=== PATIENT | female | born 1980 | race Caucasian/White ===

== ENCOUNTER → 2016-07-20 | Emergency (ER) | payer OTHER ==
--- NOTE | 2016-07-20 19:41 | DIAGNOSTIC IMAGING REPORT ---
PROCEDURE: CT ABDOMEN/PELVIS W/O CONTRAST INDICATION: Right lower quadrant pain and hematuria, initial encounter TECHNIQUE: Noncontrast axial images were obtained of the entire abdomen and pelvis with sagittal and coronal reformations. COMPARISON: CT abdomen/pelvis 05/04/2011 FINDINGS: ABDOMEN: Lung bases are clear. Normal heart size. Contracted gallbladder. Liver, pancreas, spleen, adrenal glands and kidneys are normal. No evidence of renal calculi or hydronephrosis. Normal ureters. Normal abdominal aorta. PELVIS: Normal appendix. Bilateral tubal ligation clips, the left one displaced. The uterus, adnexa and bladder are unremarkable. Trace free fluid. Bones are unremarkable. IMPRESSION: 1. Normal appendix and no evidence of urinary calculi 2. Bilateral tubal ligation clips; left clip is displaced. 3. Trace free fluid, within physiologic limits 4. Results discussed with Dr. David All CT scans at this facility use dose modulation, iterative reconstruction, and/or weight-based dosing when appropriate to reduce radiation dose to as low as reasonably achievable.
--- NOTE | 2016-07-20 21:50 | ED CLINICAL REPORT ---
Clinical Report - Physicians/Mid Levels [facility] [address] [place] [address] 07/20/2016 16:48 Patient: TRAY CORTES Time Seen: 17:34; initial patient contact. Arrived- By private vehicle. Historian- patient. HISTORY OF PRESENT ILLNESS Chief Complaint: ABDOMINAL PAIN. At its maximum, severity described as moderate. When seen in the E.D., severity described as moderate. Modifying factors. Not worsened by anything. Not relieved by anything. It is described as sharp. No radiation. It is described as located in the right lower quadrant. This started last night and is still present and worsening. It was gradual in onset. The patient has had nausea. No loss of appetite, vomiting or diarrhea. Similar symptoms previously: None. Recent medical care: Not recently seen/assessed. REVIEW OF SYSTEMS No constipation, difficulty with urination, pain with urination, urinary frequency or fever. No chest pain, difficulty breathing or chills. All systems otherwise negative, except as recorded above. PAST HISTORY Atypical Chest Pain. Perforated TM. Abrasion(s). Sprain. Fall. Contusion. Tension-Type Headache. Tetanus Status. Myofascial Strain. Last Tetanus. Dental Pain. Otitis Media. Eustachian Tube Dysfunction. Hearing Loss. Pelvic Pain. Abdominal Pain. Vaginitis. Ovarian Cyst. ADDITIONAL SURGERIES: Shoulder Surgery. Tubal Ligation. Tympanostomy Tubes. Medications: Ibuprofen Oral. Allergies: No Known Drug Allergy. SOCIAL HISTORY Current every day smoker. Regular alcohol use. No drug use. ADDITIONAL NOTES The nursing notes have been reviewed with agreement regarding the chief complaint, PMH and patient medications and allergies. PHYSICAL EXAM Vital Signs: 07/20/2016 17:28 BP: 171/97. HR: 94. RR: 16. O2 saturation: 98%. Temp: 98.6 F. Pain level now: 8/10. Have been reviewed. Hypertensive. Heart rate normal. Respiratory rate normal. Temperature normal. Oxygen saturation normal. Appearance: Alert. Oriented X3. No acute distress. Eyes: Eyes normal inspection. ENT: Pharynx normal. CVS: Normal heart rate and rhythm. Heart sounds normal. Respiratory: No respiratory distress. Breath sounds normal. Abdomen: Soft. Moderate tenderness in the right lower quadrant with guarding present. No rebound tenderness or obturator or psoas sign present. Bowel sounds normal. No organomegaly. No mass. Back: Normal inspection. No CVA tenderness. Skin: Normal skin color. No rash. Extremities: No lower extremity edema. Neuro: Oriented X 3. LABS, X-RAYS, AND EKG Abdominal CT: 1. Normal appendix and no evidence of urinary calculi 2. Bilateral tubal ligation clips; left clip is displaced. 3. Trace free fluid, within physiologic limits. Study type: abdomen and pelvis. Abdominal CT performed with IV contrast. Prior studies were not available for comparison. The study was interpreted by the radiologist and discussed with the radiologist. Laboratory Tests: UA-Culture if indicated: (JOÃO: 07/20/2016 18:10) ( [facility] 07/20/2016 18:46) Final results Test Result Flag Units (Reference) URINE COLOR YELLOW URINE APPEARANCE SL CLOUDY URINE GLUCOSE NEGATIVE (NEGATIVE) URINE BILIRUBIN NEGATIVE (NEGATIVE) URINE KETONE NEGATIVE (NEGATIVE) URINE SPECIFIC GRAVITY 1.015 (1.010-1.030) URINE PH 6.5 (5.0-8.0) URINE PROTEIN NEGATIVE (NEGATIVE) URINE UROBILINOGEN 0.2 EU/dL (0.2-1.0) URINE NITRITE NEGATIVE (NEGATIVE) URINE BLOOD 1+ (NEGATIVE) URINE LEUK ESTERASE NEGATIVE (NEGATIVE) URINE RBC 1-3 rbc/hpf (0-1) URINE WBC 25-50 wbc/hpf (0-1) URINE EPITHELIAL CELLS 3-5 EPI/hpf (0-5) URINE BACTERIA MANY (4+) (NONE SEEN) URINE COMMENT CULTURE INDICATED URINE CULTURES ARE SET-UP BASED ON THE FOLLOWING CRITERIA:POSITIVE NITRITEPOSITIVE LEUKOCYTE ESTERASEGREATER THAN 10 WHITE BLOOD CELLSMODERATE (2+) OR GREATER BACTERIA Urine: (JOÃO: 07/20/2016 18:10) ( [facility] 07/20/2016 18:36) Final results Test Result Flag Units (Reference) URINE NEGATIVE CBC w Diff: (JOÃO: 07/20/2016 18:10) ( MsgRcvd 07/20/2016 18:34) Final results Test Result Flag Units (Reference) WHITE BLOOD COUNT 10.0 K/uL (4.5-11.5) RED BLOOD COUNT 4.51 M/uL (4.00-5.20) HEMOGLOBIN 13.9 gm/dL (12.0-16.0) HEMATOCRIT 41.5 % (36.0-46.0) MEAN CELL VOLUME 92 fL (80-100) MEAN CORPUSCULAR HGB 31 pg (26-34) MEAN CORPUSCULAR HGB CONC 34 g/dL (31-37) RED CELL DISTRIBUTION WIDTH 14.3 % (11.6-14.8) PLATELET COUNT 310 K/uL (150-400) NEUTROPHIL % 68.8 % (50-75) LYMPH % 23.6 L % (25-40) MONO % 6.3 % (3-14) EOSINOPHIL % 1.1 % (0-4) BASOPHIL % 0.2 % (0-2) CMP: (JOÃO: 07/20/2016 18:10) ( MsgRcvd 07/20/2016 18:46) Final results Test Result Flag Units (Reference) GLUCOSE 103 mg/dL (70-110) BUN 14 mg/dL (7-18) CREATININE 0.8 mg/dL (0.6-1.3) Estimated GFR >60 mL/min Estimated GFR- >60 mL/min Note: Persistent reduction over 3 months in eGFR<60 mL/min/1.73 m2 defines CKD. Patients with eGFR values>=60 mL/min/1.73 m2 may also have CKD if evidence ofpersistent proteinuria. Additional information may be foundat www.kidney.org. SODIUM 139 mmol/L (136-145) POTASSIUM 3.6 mmol/L (3.5-5.1) CHLORIDE 102 mmol/L (98-107) CARBON DIOXIDE 27 mmol/L (21-32) CALCIUM 8.5 mg/dL (8.5-10.1) TOTAL PROTEIN 7.4 g/dL (6.4-8.2) ALBUMIN 3.7 g/dL (3.3-5.0) BILIRUBIN, TOTAL 0.2 mg/dL (0.0-1.0) ALKALINE PHOSPHATASE 103 U/L (46-116) AST (SGOT) 18 U/L (15-37) ALT (SGPT) 33 U/L (12-78) . PROGRESS AND PROCEDURES Disposition: Discharged home in good and improved condition. Condition: good. CLINICAL IMPRESSION Essential hypertension. Acute right lower quadrant abdominal pain of unknown cause. INSTRUCTIONS Do not smoke. Seek medical help to quit smoking. Follow a low salt diet. Your Current Medications: STOP TAKING THE FOLLOWING MEDICATIONS: Ibuprofen Oral. Prescription Medications: Hydrocodone/APAP 5mg / 325mg: take 1 orally every 6 hours as needed for pain. Dispense fifteen (15). No refill. Zofran (orally disintegrating tablets) 4 mg: take 1 orally every 6 hours as needed for nausea and vomiting. Dispense ten (10). No refill. Substitution is permissible. Lisinopril 10 mg: take 1 orally every 24 hours. Dispense fifteen (15). No refills. Follow-up: Follow up with your doctor Discuss your left tubal ligation clip is displaced in two days. Call for an appointment. Screening today revealed the patient's blood pressure to be in the hypertensive range. The patient should follow up with a primary care provider for blood pressure management. (Electronically signed by Jacky David Dr. 07/20/2016 22:18)
--- NOTE | 2016-07-20 21:50 | ED ORDER SUMMARY ---
..... Patient: TRAY CORTES OrderSheet [facility] VisitID: [id number] [place] [address] 35y, F Registration Date/Time: 07/20/2016 ORDER SHEET Weight: 71.6 kg Allergies: No Known Drug Allergy GENERAL ORDERS: CBC w Diff Urgent (17:55 07/20/2016 Jr Corcoran) (Ack 17:56 Austyn) (18:18 KKnebel R.N.) CMP Urgent (17:55 07/20/2016 Jr Corcoran) (Ack 17:56 Austyn) (18:18 KKnebel R.N.) UA-Culture if indicated Urgent (17:55 07/20/2016 Jr Corcoran) (Ack 17:56 Austyn) (18:18 KKnebel R.N.) Urine Urgent (17:55 07/20/2016 Jr Corcoran) (Ack 17:56 Austyn) (18:18 KKnebel R.N.) CT Abd/Pel wo Cont Urgent (18:51 07/20/2016 Jr Corcoran) (Ack 18:55 Austyn) (18:59 KKnebel R.N.) MEDICATION ORDERS: IV FLUIDS: IV NS : initial bolus none -, then 1000 mL/hr for X1 (NOW) (17:54 07/20/2016 Jr Corcoran) (18:14 FRANCINEnebel R.N.) Toradol IV 30 mg (NOW) (17:54 07/20/2016 Jr Corcoran) (18:13 KKnebel R.N.) Zofran IV 4 mg (NOW) (17:55 07/20/2016 Jr Corcoran) (18:14 FRANCINEnebel R.N.) Morphine IV 4 mg (HIGH ALERT MEDICATION, NOW) (18:54 07/20/2016 Jr Corcoran) (19:13 FRANCINEnebel R.N.) Morphine IV 4 mg (HIGH ALERT MEDICATION, NOW) (21:34 07/20/2016 Jr Corcoran) (21:43 FRANCINEnebel R.N.) Hydralazine IV 20 mg (HIGH ALERT MEDICATION, NOW) (21:55 07/20/2016 Jr Corcoran) (22:08 Shakir Mcclain) ORDER SHEET NOTES: [Electronically signed by Jacky David Dr. (22:18 07/20/2016)] [Electronically signed by Mely Weber R.N. (22:19 07/20/2016)] [Electronically locked/signed by Mely Weber R.N. (22:19 07/20/2016)]
--- NOTE | 2016-07-20 21:50 | ED NURSING NOTES ---
Clinical Report - Nurses [facility] [address] [place] [address] 07/20/2016 16:48 Patient: TRAY CORTES TRIAGE Triage time 17:28 Jul 20 2016. Acuity: LEVEL 3. Chief Complaint: ABDOMINAL PAIN and NAUSEA. --17:31 Mley Weber R.N. 17:28 07/20/16. BP: 171/97. HR: 94. RR: 16. O2 saturation: 98%. Temp: 98.6 F. Pain level now: 12/30. --17:31 Mely Weber R.N. Weight: 71.6 kg. Height/Length: 59 inches. BMI: 31.9. --17:32 Mely Weber R.N. Medications Ibuprofen Oral. --17:29 Mely Weber R.N. Allergies No Known Drug Allergy. --17:29 Mely Weber R.N. History Arrived by private vehicle. Historian: patient. This started yesterday. SOCIAL HX: Current every day light tobacco smoker (cigarette)- less than 1/2 a pack per day. Occasional alcohol use; consumes six beers. No drug use. No infectious disease exposure. ABUSE ASSESSMENT: Abuse assessment: The patient was asked "Do you feel safe in your home?". No report of abuse. FALL RISK ASSESSMENT: Fall risk assessment completed. No fall risk identified. NUTRITIONAL RISK ASSESSMENT: The nutritional risk assessment revealed no deficiencies. FUNCTIONAL ASSESSMENT: Functional assessment: no impairments noted. LEARNING NEEDS ASSESSMENT: The learning needs assessment revealed no barriers. SKIN INTEGRITY ASSESSMENT: Skin integrity risk assessment completed. No skin integrity risk identified. --17:31 Mely Weber R.N. PROBLEMS: Atypical Chest Pain. Perforated TM. Abrasion(s). Sprain. Fall. Contusion. Tension-Type Headache. Tetanus Status. Myofascial Strain. Last Tetanus. Dental Pain. Otitis Media. Eustachian Tube Dysfunction. Hearing Loss. Pelvic Pain. Abdominal Pain. Vaginitis. Ovarian Cyst. Immunizations. LNMP - Last Normal Menstrual Period. --17:29 Mely Weber R.N. Dental Pain [RuleOut]. --17:29 Mely Weber R.N. ADDITIONAL SURGERIES: Shoulder Surgery. Tubal Ligation. Tympanostomy Tubes. --17:29 Mely Weber R.N. Interventions ID band on patient. To room. --17:31 Mely Weber R.N. PHYSICAL ASSESSMENT GENERAL / NEURO / PSYCH: Alert. Oriented X 4. Appears in pain. RESPIRATORY: Respirations not labored. CVS: Capillary refill less than 2 seconds. GI / : The patient has had nausea. Abdominal tenderness. SKIN: Skin is warm and dry. --17:32 Mely Weber R.N. NURSING PROGRESS NOTES Patient gowned. Head of bed elevated. Two patient identifiers checked. Call light placed in reach. Side rails up x 1. Bed placed in lowest position. Brakes of bed on. Patient ready for evaluation- chart flagged. --17:32 Mely Weber R.N. 18:13 07/20/2016 Site #1 started via IV in the left antecubital space with an 20g angiocath; one attempt. Blood drawn: rainbow set. Labeled in the presence of the patient and held. Saline lock flushed with 10 mL saline. --18:13 Mely Weber R.N. 18:13 07/20/2016 Toradol IVP 30 mg given over 2 minute(s) via site #1. --18:13 Mely Weber R.N. 18:14 07/20/2016 Zofran (Ondansetron HCl) IVP 4 mg given over 2 minute(s) via site #1. --18:14 Mely Weber R.N. 18:14 07/20/2016 Started bag #1 1000 mL IV Fluids IV NS (Saline); at 1000 mL/hr over 30 minute(s) via site #1. Allergies verified and confirmed 5 rights. IV patency established. IV site checked: no pain, redness, or swelling. IV flushed thoroughly pre- and post-medication administration. --18:14 Mely Weber R.N. 19:13 07/20/2016 Morphine IVP 4 mg given over 2 minute(s) via site #1. Allergies verified, confirmed 5 rights and sedative warning given to the patient. IV patency established. IV site checked: no pain, redness, or swelling. IV flushed thoroughly pre- and post-medication administration. --19:13 Mely Weber R.N. 19:13 07/20/16. BP: 161/101. HR: 97. RR: 20. O2 saturation: 100%. Pain level now 03/01. --19:14 Mely Weber R.N. ( pt ambulated to bathroom). --19:14 Mely Weber R.N. 19:15 07/20/2016 IV Fluids IV NS Discontinued: bag #1 completed. Total amount infused: 1000 mL. --19:58 Mely Weber R.N. 19:57 07/20/2016 Morphine IVP Response: pain is improving. Symptoms are the same. The patient feels the same. --19:57 Mely Weber R.N. 21:40 07/20/2016 Morphine IVP 4 mg given over 2 minute(s) via site #1. Allergies verified, confirmed 5 rights and sedative warning given to the patient. IV patency established. IV site checked: no pain, redness, or swelling. IV flushed thoroughly pre- and post-medication administration. --21:43 Mely Weber R.N. 22:08 07/20/2016 Site #2 started via IV in the right antecubital space with an 22g angiocath; one attempt. Saline lock flushed with 10 mL saline. --22:08 Mely Weber R.N. 22:07/20/2016 Hydralazine IVP 20 mg given over 2 minute(s) via site #2. --22:08 Mely Weber R.N. DISPOSITION / DISCHARGE 21:45 07/20/2016 Site #1 removed upon discharge. Catheter intact. Bandage applied. --21:45 Mely Weber R.N. 21:45 07/20/16. BP: 191/111. HR: 85. RR: 16. O2 saturation: 99%. Pain level now: 11/29. --21:51 Mely Weber R.N. Condition at departure: improved. No learning barriers present. Reviewed medication(s) side effects, precautions, dosing and course information. Prescription(s) given to the patient. Reviewed referral to a primary care physician. Reviewed low salt (2 GM) diet. Written instructions provided in Maltese. The patient was discharged home. She left the Emergency Department ambulatory and via (walking home). FALL RISK ASSESSMENT: Fall risk assessment completed. No fall risk identified. --22:17 Mely Weber R.N. 22:16 07/20/16. BP: 164/101. HR: 94. RR: 16. O2 saturation: 96%. --22:17 Mely Weber R.N. Locked/Released at 07/20/2016 22:19 by Mely Weber R.N.
--- NOTE | 2016-07-20 21:50 | ED ORDER SUMMARY ---
..... Patient: TRAY CORTES OrderSheet [facility] VisitID: [id number] [place] [address] 35y, F Registration Date/Time: 07/20/2016 ORDER SHEET Weight: 71.6 kg Allergies: No Known Drug Allergy GENERAL ORDERS: CBC w Diff Urgent (17:55 07/20/2016 Jr Corcoran) (Ack 17:56 Austyn) (18:18 KKnebel R.N.) CMP Urgent (17:55 07/20/2016 Jr Corcoran) (Ack 17:56 Austyn) (18:18 KKnebel R.N.) UA-Culture if indicated Urgent (17:55 07/20/2016 Jr Corcoran) (Ack 17:56 Austyn) (18:18 KKnebel R.N.) Urine Urgent (17:55 07/20/2016 Jr Corcoran) (Ack 17:56 Austyn) (18:18 KKnebel R.N.) CT Abd/Pel wo Cont Urgent (18:51 07/20/2016 Jr Corcoran) (Ack 18:55 Austyn) (18:59 KKnebel R.N.) MEDICATION ORDERS: IV FLUIDS: IV NS : initial bolus none -, then 1000 mL/hr for X1 (NOW) (17:54 07/20/2016 Jr Corcoran) (18:14 FRANCINEnebel R.N.) Toradol IV 30 mg (NOW) (17:54 07/20/2016 Jr Corcoran) (18:13 KKnebel R.N.) Zofran IV 4 mg (NOW) (17:55 07/20/2016 Jr Corcoran) (18:14 FRANCINEnebel R.N.) Morphine IV 4 mg (HIGH ALERT MEDICATION, NOW) (18:54 07/20/2016 Jr Corcoran) (19:13 FRANCINEnebel R.N.) Morphine IV 4 mg (HIGH ALERT MEDICATION, NOW) (21:34 07/20/2016 Jr Corcoran) (21:43 FRANCINEnebel R.N.) Hydralazine IV 20 mg (HIGH ALERT MEDICATION, NOW) (21:55 07/20/2016 Jr Corcoran) (22:08 Shakir Mcclain) ORDER SHEET NOTES: [Electronically signed by Jacky David Dr. (22:18 07/20/2016)] [Electronically signed by Mely Weber R.N. (22:19 07/20/2016)] [Electronically locked/signed by Mely Weber R.N. (22:19 07/20/2016)]
--- NOTE | 2016-07-20 22:20 | ED MED RECONCILIATION SUMMARY ---
Patient: TRAY CORTES Medication Reconciliation Report [facility] VisitID: [id number] [address] [place] [address] 35y, F Registration Date/Time: 07/20/2016 Weight: 71.6 kg Height/Length: 59 in. BMI: 31.9 ALLERGIES: No Known Drug Allergy The patient's Home Medications are listed below: STOP TAKING THE FOLLOWING MEDICATIONS: Ibuprofen Oral The source(s) of the original Home Medication information: Not obtained. The following Medications were given to the patient in the Emergency Department: Toradol [IVP] IVP 30 mg, administered: 07/20/2016 6:13:00 PM Zofran [IVP] IVP 4 mg, administered: 07/20/2016 6:14:00 PM IV NS IV Fluids bolus 0, then 1000 mL/hr, administered: 07/20/2016 6:14:00 PM Morphine [IVP] IVP 4 mg, administered: 07/20/2016 7:13:00 PM Morphine [IVP] IVP 4 mg, administered: 07/20/2016 9:40:00 PM Hydralazine [IVP] IVP 20 mg, administered: 07/20/2016 10:08:00 PM The following Medications were prescribed to the patient: Hydrocodone/APAP 5mg / 325mg: take 1 orally every 6 hours as needed for pain. Dispense fifteen (15). No refill. -- Jacky David Dr. Zofran (orally disintegrating tablets) 4 mg: take 1 orally every 6 hours as needed for nausea and vomiting. Dispense ten (10). No refill. Substitution is permissible. -- Jacky David Dr. Lisinopril 10 mg: take 1 orally every 24 hours. Dispense fifteen (15). No refills. -- Jacky David Dr.
--- NOTE | 2016-07-20 22:20 | ED DISCHARGE INSTRUCTIONS ---
Patient: TRAY CORTES General Instructions [facility] VisitID: [id number] [place] [address] 35y, F Registration Date/Time: 07/20/2016 Essential hypertension. Acute right lower quadrant abdominal pain of unknown cause. INSTRUCTIONS Do not smoke. Seek medical help to quit smoking. Follow a low salt diet. Your Current Medications: STOP TAKING THE FOLLOWING MEDICATIONS: Ibuprofen Oral. Prescription Medications: Hydrocodone/APAP 5mg / 325mg: take 1 orally every 6 hours as needed for pain. Dispense fifteen (15). No refill. Zofran (orally disintegrating tablets) 4 mg: take 1 orally every 6 hours as needed for nausea and vomiting. Dispense ten (10). No refill. Substitution is permissible. Lisinopril 10 mg: take 1 orally every 24 hours. Dispense fifteen (15). No refills. Follow-up: Follow up with your doctor Discuss your left tubal ligation clip is displaced in two days. Call for an appointment. Screening today revealed the patient's blood pressure to be in the hypertensive range. The patient should follow up with a primary care provider for blood pressure management. ADDITIONAL INFORMATION Abdominal Pain, Unknown Cause (Female) The exact cause of your abdominal (stomach) pain is not certain. This does not mean that this is something to worry about, or the right tests were not done. Everyone likes to know the exact cause of the problem, but sometimes with abdominal pain, there is no clear-cut cause, and this could be a good thing. The good news is that your symptoms can be treated, and you will feel better. Your condition does not seem serious now; however, sometimes the signs of a serious problem may take more time to appear. For this reason,it is important for you to watch for any new symptoms, problems,or worsening of your condition. Over the next few days, the abdominal pain may come and go, or be continuous. Other common symptoms can include nausea and vomiting. Sometimes it can be difficult to tell if you feel nauseous, you may just feel bad and not associate that feeling with nausea. Constipation, diarrhea, and a fever may go along with the pain. The pain may continue even if treated correctly over the following days. Depending on how things go, sometimes the cause can become clear and may require further or different treatment. Additional evaluations, medications, or tests may be needed. Home care Your health care provider may prescribe medications for pain, symptoms, or an infection. Follow the health care provider's instructions for taking these medications. General care Rest until your next exam. No strenuous activities. Try to find positions that ease discomfort. A small pillow placed on the abdomen may help relieve pain. Something warm on your abdomen (such as a heating pad) may help, but be careful not to burn yourself. Diet Do not force yourself to eat, especially if having cramps, vomiting, or diarrhea. Water is important so you do not get dehydrated. Soup may also be good. Sports drinks may also help, especially if they are not too acidic. Make sure you don't drink sugary drinks as this can make things worse. Take liquids in small amounts. Do not guzzle them. Caffeine sometimes makes the pain and cramping worse. Avoid dairy products if you have vomiting or diarrhea. Don't eat large amounts at a time. Wait a few minutes between bites. Eat a diet low in fiber (called a low-residue diet). Foods allowed include refined breads, white rice, fruit and vegetable juices without pulp, tender meats. These foods will pass more easily through the intestine. Avoid whole-grain foods, whole fruits and vegetables, meats, seeds and nuts, fried or fatty foods, dairy, alcohol and spicy foods until your symptoms go away. Follow-up care Follow up with your health care provider as instructed, or if your pain does not begin to improve in the next 24 hours. When to seek medical care Seek prompt medical care if any of the following occur: Pain gets worse or moves to the right lower abdomen New or worsening vomiting or diarrhea Swelling of the abdomen Unable to pass stool for more than three days Fever of 100.4F (38C) or higher, or as directed by your healthcare provider. Blood in vomit or bowel movements (dark red or black color) Jaundice (yellow color of eyes and skin) Weakness, dizziness Chest, arm, back, neck or jaw pain Unexpected vaginal bleeding or missed period Call 911 Call emergency services if any of the following occur: Trouble breathing Confusion Fainting or loss of consciousness Rapid heart rate Seizure High Blood Pressure -- New (Begin Tx) Your blood pressure was high enough today to start treatment with medicines. The cause of hypertension is unknown in most cases, but can be controlled with lifestyle changes and/or medicines. Hypertension may cause headache, dizziness, blurred vision, rushing sound in your ears, chest pain or shortness of breath. Sometimes it causes no symptoms at all. However, untreated hypertension increases the risk of heart attack, also known as acute myocardial infarction, or AMI, and stroke. It is a serious health risk and should not be ignored. A normal blood pressure is 120/80 or less. The first (top) number is the "systolic" pressure. The second (bottom) number is the "diastolic" pressure. Hypertension exists when either the top number is 140 or higher, OR the bottom number is 90 or higher on repeated measurements. Home Care: All patients with hypertension should do the following to lower their pressure. If you are on medicines, then these methods may reduce or eliminate your need for medicine in the future. Begin a weight loss program if you are overweight. Reduce your salt intake. Avoid high salt foods (olives, pickles, smoked meats, salted potato chips, etc.). Do not add salt to your food at the table. Use only small amounts of salt when cooking. Begin an exercise program. Discuss with your doctor what type of exercise program would be best for you. It doesn't have to be difficult. Even brisk walking for 20 minutes three times a week is a good form of exercise. Avoid medicines which contain heart stimulants. This includes many cold and sinus decongestant pills and sprays as well as diet pills. Check the warnings about hypertension on the label. Stimulants such as amphetamine or cocaine could be lethal for someone with hypertension. Never take these. Limit your caffeine intake or switch to caffeine-free products. Stop smoking. If you are a long-time smoker, this can be hard. Enroll in a stop-smoking program to improve your chance of success. Talk to your physician about ways to improve your chance of success. Learning how to handle stress better is an important part of any program to lower blood pressure. Learn about relaxation methods such as meditation, yoga, or biofeedback. If medicines were prescribed, take them exactly as directed. Missing doses may cause your blood pressure to get out of control. Consider buying an automatic blood pressure machine (available at many pharmacies). Use this to monitor your blood pressure and report to your doctor. Follow Up: Because a new blood pressure medicine was started today, it is important that you have your blood pressure rechecked to be sure you are responding well and that there are no serious side effects. Unless told otherwise, follow-up with your doctor or this facility within the next THREE DAYS. Get Prompt Medical Attention if any of the following occur: Chest pain or shortness of breath Severe headache Throbbing or rushing sound in the ears Nosebleed Sudden severe abdominal pain Extreme drowsiness, confusion or fainting Dizziness or vertigo (dizziness with spinning sensation) Weakness of an arm or leg or one side of the face Difficulty with speech or vision Low-Salt Diet (2 Grams/Day) This diet eliminates foods that are high in salt and restricts the amount of salt that you cook with. It is most often used for patients with high blood pressure, edema (fluid retention), kidney, liver, and heart disease. Table salt contains the mineral sodium. The body needs sodium to work normally. But too much sodium can make your health problems worse. Your healthcare provider is recommending a low-salt (also called low-sodium) diet for you. Your total daily allowance of salt (sodium) is 2 grams. This equals 2,000 milligrams (mg). It is less than 1 teaspoon of table salt. This means you can have only about 700 mg of sodium at each meal. When you cook, limit the salt you use. And if you can avoid using salt, even better. Do not add salt at the table. So, throw away the saltshaker! When shopping, read the package labels. Salt is often called sodium on the label. Choose foods that are Salt-Free, Low Salt, or Very Low Salt. Note that foods with Reduced Salt may notlower your salt intake enough. Beverages OK: Tea, coffee, carbonated beverages, juices AVOID: Flavored international coffees, electrolyte replacement drinks, sports beverages Bread & Cereals OK: All regular bread, rolls, cereals, cakes; low-salt crackers, matzoh crackers AVOID: Salted crackers, pretzels, popcorn; pitcairn islander toast, pancakes, muffins Fruits & Desserts OK: Ice cream, frozen yogurt, juice bars, gelatin (Jell-O), cookies and pies, sugar, honey, jelly, hard candy AVOID: Most pies, cakes and cookies prepared or processed with salt, instant pudding Meats OK: All fresh meat, fish, poultry, low-salt tuna AVOID: Smoked, pickled, brine-cured, or salted meats or fish. Thisincludes corea, chipped beef, corned beef, hot dogs, luncheon meats, ham, kosher meats, salt pork, sausage, canned tuna, salted codfish, smokedsalmon, capellan, sardines, or anchovies. Dairy OK: Milk, chocolate milk, hot chocolate mix; eggs, Low Salt cheeses, yogurt, egg substitute AVOID: Processed cheese, cheese spreads, Roquefort, Camembert, and cottage cheese, buttermilk, instant breakfast drink Beans, Potatoes & Pasta OK: Dry beans, split peas, lentils, potatoes, rice, macaroni, noodles, spaghetti without added salt AVOID: Potato chips, tortilla chips, and similar products Soups OK: Low-salt soups and broths made with allowed foods AVOID: Bouillon cubes, soups with smoked or salted meats, regular soup and broth Vegetables OK: Most are okay; low-salt tomato and vegetable juices AVOID: Sauerkraut and other brine-soaked vegetables, pickles and other pickled vegetables, tomato juice, olives Seasoning & Spices OK: Most seasonings are okay. Good substitutes for salt include: fresh herb blends, Tabasco, lemon, garlic, vela, vinegar, dry mustard, parsley, cilantro, horseradish, tomato paste, regular margarine, mayonnaise, butter, cream cheese, vegetable oil, cream, low-salt salad dressing and gravy AVOID: Regular ketchup, relishes, pickles, soy sauce, teriyaki sauce, Worcestershire sauce, BBQ sauce, tartar sauce, meat tenderizer, chili sauce, regular gravy, regular salad dressing Hydrocodone Bitartrate, Acetaminophen Oral tablet What is this medicine? ACETAMINOPHEN; HYDROCODONE (a set a JORDON danisha fen; loy droe KOE done) is a pain reliever. It is used to treat mild to moderate pain. How should I use this medicine? Take this medicine by mouth. Swallow it with a full glass of water. Follow the directions on the prescription label. If the medicine upsets your stomach, take the medicine with food or milk. Do not take more than you are told to take. Talk to your compensation and benefits advisor regarding the use of this medicine in children. This medicine is not approved for use in children. What side effects may I notice from receiving this medicine? Side effects that you should report to your doctor or health career representative as soon as possible: allergic reactions like skin rash, itching or hives, swelling of the face, lips, or tongue breathing problems confusion feeling faint or lightheaded, falls stomach pain yellowing of the eyes or skin Side effects that usually do not require medical attention (report to your doctor or health career representative if they continue or are bothersome): nausea, vomiting stomach upset What may interact with this medicine? alcohol antihistamines isoniazid medicines for depression, anxiety, or psychotic disturbances medicines for sleep muscle relaxants naltrexone narcotic medicines (opiates) for pain phenobarbital ritonavir tramadol What if I miss a dose? If you miss a dose, take it as soon as you can. If it is almost time for your next dose, take only that dose. Do not take double or extra doses. Where should I keep my medicine? Keep out of the reach of children. This medicine can be abused. Keep your medicine in a safe place to protect it from theft. Do not share this medicine with anyone. Selling or giving away this medicine is dangerous and against the law. Store at room temperature between 15 and 30 degrees C (59 and 86 degrees F). Protect from light. Keep container tightly closed. Throw away any unused medicine after the expiration date. Discard unused medicine and used packaging carefully. Pets and children can be harmed if they find used or lost packages. What should I tell my health care provider before I take this medicine? They need to know if you have any of these conditions: brain tumor Crohn's disease, inflammatory bowel disease, or ulcerative colitis drink more than 3 alcohol-containing drinks per day drug abuse or addiction head injury heart or circulation problems kidney disease or problems going to the bathroom liver disease lung disease, asthma, or breathing problems an unusual or allergic reaction to acetaminophen, hydrocodone, other opioid analgesics, other medicines, foods, dyes, or preservatives or trying to get breast-feeding What should I watch for while using this medicine? Tell your doctor or health career representative if your pain does not go away, if it gets worse, or if you have new or a different type of pain. You may develop tolerance to the medicine. Tolerance means that you will need a higher dose of the medicine for pain relief. Tolerance is normal and is expected if you take the medicine for a long time. Do not suddenly stop taking your medicine because you may develop a severe reaction. Your body becomes used to the medicine. This does NOT mean you are addicted. Addiction is a behavior related to getting and using a drug for a non-medical reason. If you have pain, you have a medical reason to take pain medicine. Your doctor will tell you how much medicine to take. If your doctor wants you to stop the medicine, the dose will be slowly lowered over time to avoid any side effects. You may get drowsy or dizzy when you first start taking the medicine or change doses. Do not drive, use machinery, or do anything that may be dangerous until you know how the medicine affects you. Stand or sit up slowly. There are different types of narcotic medicines (opiates) for pain. If you take more than one type at the same time, you may have more side effects. Give your health care provider a list of all medicines you use. Your doctor will tell you how much medicine to take. Do not take more medicine than directed. Call emergency for help if you have problems breathing. The medicine will cause constipation. Try to have a bowel movement at least every 2 to 3 days. If you do not have a bowel movement for 3 days, call your doctor or health career representative. Too much acetaminophen can be very dangerous. Do not take Tylenol (acetaminophen) or medicines that contain acetaminophen with this medicine. Many non-prescription medicines contain acetaminophen. Always read the labels carefully. Ondansetron Oral disintegrating tablet What is this medicine? ONDANSETRON (on RAAD se morteza) is used to treat nausea and vomiting caused by chemotherapy. It is also used to prevent or treat nausea and vomiting after surgery. How should I use this medicine? These tablets are made to dissolve in the mouth. Do not try to push the tablet through the foil backing. With dry hands, peel away the foil backing and gently remove the tablet. Place the tablet in the mouth and allow it to dissolve, then swallow. While you may take these tablets with water, it is not necessary to do so. Talk to your compensation and benefits advisor regarding the use of this medicine in children. Special care may be needed. What side effects may I notice from receiving this medicine? Side effects that you should report to your doctor or health career representative as soon as possible: allergic reactions like skin rash, itching or hives, swelling of the face, lips, or tongue breathing problems dizziness fast or irregular heartbeat feeling faint or lightheaded, falls fever and chills swelling of the hands and feet tightness in the chest Side effects that usually do not require medical attention (report to your doctor or health career representative if they continue or are bothersome): constipation or diarrhea headache What may interact with this medicine? Do not take this medicine with any of the following medications: -apomorphine -cisapride -dofetilide -dronedarone -pimozide -thioridazine -ziprasidone This medicine may also interact with the following medications: -carbamazepine -phenytoin -rifampicin -tramadol -other medicines that prolong the QT interval (cause an abnormal heart rhythm) What if I miss a dose? If you miss a dose, take it as soon as you can. If it is almost time for your next dose, take only that dose. Do not take double or extra doses. Where should I keep my medicine? Keep out of the reach of children. Store between 2 and 30 degrees C (36 and 86 degrees F). Throw away any unused medicine after the expiration date. What should I tell my health care provider before I take this medicine? They need to know if you have any of these conditions: heart disease history of irregular heartbeat liver disease low levels of magnesium or potassium in the blood an unusual or allergic reaction to ondansetron, granisetron, other medicines, foods, dyes, or preservatives or trying to get breast-feeding What should I watch for while using this medicine? Check with your doctor or health career representative as soon as you can if you have any sign of an allergic reaction. Lisinopril Oral tablet What is this medicine? LISINOPRIL (lyse IN oh pril) is an SAPNA inhibitor. This medicine is used to treat high blood pressure and heart failure. It is also used to protect the heart immediately after a heart attack. How should I use this medicine? Take this medicine by mouth with a glass of water. Follow the directions on your prescription label. You may take this medicine with or without food. Take your medicine at regular intervals. Do not stop taking this medicine except on the advice of your doctor or health career representative. Talk to your compensation and benefits advisor regarding the use of this medicine in children. Special care may be needed. While this drug may be prescribed for children as young as 6 years of age for selected conditions, precautions do apply. What side effects may I notice from receiving this medicine? Side effects that you should report to your doctor or health career representative as soon as possible: abdominal pain with or without nausea or vomiting allergic reactions like skin rash or hives, swelling of the hands, feet, face, lips, throat, or tongue dark urine difficulty breathing dizzy, lightheaded or fainting spell fever or sore throat irregular heart beat, chest pain pain or difficulty passing urine redness, blistering, peeling or loosening of the skin, including inside the mouth unusually weak yellowing of the eyes or skin Side effects that usually do not require medical attention (report to your doctor or health career representative if they continue or are bothersome): change in taste cough decreased sexual function or desire headache sun sensitivity tiredness What may interact with this medicine? diuretics lithium NSAIDs, medicines for pain and inflammation, like ibuprofen or naproxen [id number] herbal supplements like hawthorn potassium salts or potassium supplements salt substitutes What if I miss a dose? If you miss a dose, take it as soon as you can. If it is almost time for your next dose, take only that dose. Do not take double or extra doses. Where should I keep my medicine? Keep out of the reach of children. Store at room temperature between 15 and 30 degrees C (59 and 86 degrees F). Protect from moisture. Keep container tightly closed. Throw away any unused medicine after the expiration date. What should I tell my health care provider before I take this medicine? They need to know if you have any of these conditions: diabetes heart or blood vessel disease immune system disease like lupus or scleroderma kidney disease low blood pressure previous swelling of the tongue, face, or lips with difficulty breathing, difficulty swallowing, hoarseness, or tightening of the throat an unusual or allergic reaction to lisinopril, other SAPNA inhibitors, insect venom, foods, dyes, or preservatives or trying to get breast-feeding What should I watch for while using this medicine? Visit your doctor or health career representative for regular check ups. Check your blood pressure as directed. Ask your doctor what your blood pressure should be, and when you should contact him or her. Call your doctor or health career representative if you notice an irregular or fast heart beat. Women should inform their doctor if they wish to become or think they might be . There is a potential for serious side effects to an unborn child. Talk to your health career representative or pharmacist for more information. Check with your doctor or health career representative if you get an attack of severe diarrhea, nausea and vomiting, or if you sweat a lot. The loss of too much body fluid can make it dangerous for you to take this medicine. You may get drowsy or dizzy. Do not drive, use machinery, or do anything that needs mental alertness until you know how this drug affects you. Do not stand or sit up quickly, especially if you are an older patient. This reduces the risk of dizzy or fainting spells. Alcohol can make you more drowsy and dizzy. Avoid alcoholic drinks. Avoid salt substitutes unless you are told otherwise by your doctor or health career representative. Do not treat yourself for coughs, colds, or pain while you are taking this medicine without asking your doctor or health career representative for advice. Some ingredients may increase your blood pressure. You have been given the following additional information: Abdominal Pain, Unknown Cause, (Female) Hypertension, New (Begin Treatment) Diet, Low Salt (2Gm) Hydrocodone Bitartrate, Acetaminophen Oral tablet Ondansetron Oral disintegrating tablet Lisinopril Oral tablet (Electronically signed by Jacky David Dr. 07/20/2016 22:18)
--- NOTE | 2016-07-20 22:20 | ED MAR SUMMARY ---
..... Medication Administration Record [facility] [address] [place] [address] Patient: TRAY CORTES Visit ID: [id number] 35y, F Weight: 71.6 kg Height/Length: 59 in BMI: 31.9 ALLERGIES: No Known Drug Allergy Given 18:13 07/20/2016 Mely Weber R.N. Medication Administered: TORADOL [IVP], Dose: 30 mg IVP over 2 minute(s), Site: #1 left AC. Medication Ordered: Toradol IV 30 mg (NOW). Given 18:14 07/20/2016 Mely Weber R.N. Medication Administered: ZOFRAN [IVP] (ONDANSETRON HCL), Dose: 4 mg IVP over 2 minute(s), Site: #1 left AC. Medication Ordered: Zofran IV 4 mg (NOW). Start 18:14 07/20/2016 Mely Weber R.N., Stop 19:15 07/20/2016 Mely Weber R.N. Medication Administered: IV NS (SALINE), Dose: IV Fluids over 30 minute(s), Rate: 1000 mL/hr, Dispensed: 1000 mL bag, Site: #1 left AC. Medication Ordered: IV NS : initial bolus none -, then 1000 mL/hr for X1 (NOW). Given 19:13 07/20/2016 Mely Weber R.N. Medication Administered: MORPHINE [IVP], Dose: 4 mg IVP over 2 minute(s), Site: #1 left AC. Medication Ordered: Morphine IV 4 mg (HIGH ALERT MEDICATION, NOW). Given 21:40 07/20/2016 Mely Weber R.N. Medication Administered: MORPHINE [IVP], Dose: 4 mg IVP over 2 minute(s), Site: #1 left AC. Medication Ordered: Morphine IV 4 mg (HIGH ALERT MEDICATION, NOW). Given 22:08 07/20/2016 Mely Weber R.N. Medication Administered: HYDRALAZINE [IVP], Dose: 20 mg IVP over 2 minute(s), Site: #2 right AC. Medication Ordered: Hydralazine IV 20 mg (HIGH ALERT MEDICATION, NOW).
--- NOTE | 2016-07-20 22:20 | ED MED RECONCILIATION SUMMARY ---
Patient: TRAY CORTES Medication Reconciliation Report VisitID: [id number] [address] [place] [address] 35y, F Registration Date/Time: 07/20/2016 Weight: 71.6 kg Height/Length: 59 in. BMI: 31.9 ALLERGIES: No Known Drug Allergy The patient's Home Medications are listed below: STOP TAKING THE FOLLOWING MEDICATIONS: Ibuprofen Oral The source(s) of the original Home Medication information: Not obtained. The following Medications were given to the patient in the Emergency Department: Toradol [IVP] IVP 30 mg, administered: 07/20/2016 6:13:00 PM Zofran [IVP] IVP 4 mg, administered: 07/20/2016 6:14:00 PM IV NS IV Fluids bolus 0, then 1000 mL/hr, administered: 07/20/2016 6:14:00 PM Morphine [IVP] IVP 4 mg, administered: 07/20/2016 7:13:00 PM Morphine [IVP] IVP 4 mg, administered: 07/20/2016 9:40:00 PM Hydralazine [IVP] IVP 20 mg, administered: 07/20/2016 10:08:00 PM The following Medications were prescribed to the patient: Hydrocodone/APAP 5mg / 325mg: take 1 orally every 6 hours as needed for pain. Dispense fifteen (15). No refill. -- aJcky David Dr. Zofran (orally disintegrating tablets) 4 mg: take 1 orally every 6 hours as needed for nausea and vomiting. Dispense ten (10). No refill. Substitution is permissible. -- Jacky David Dr. Lisinopril 10 mg: take 1 orally every 24 hours. Dispense fifteen (15). No refills. -- Jacky David Dr.
--- NOTE | 2016-07-20 22:20 | ED MAR SUMMARY ---
..... Medication Administration Record [facility] [address] [place] [address] Patient: TRAY CORTES Visit ID: [id number] 35y, F Weight: 71.6 kg Height/Length: 59 in BMI: 31.9 ALLERGIES: No Known Drug Allergy Given 18:13 07/20/2016 Mely Weber R.N. Medication Administered: TORADOL [IVP], Dose: 30 mg IVP over 2 minute(s), Site: #1 left AC. Medication Ordered: Toradol IV 30 mg (NOW). Given 18:14 07/20/2016 Mely Weber R.N. Medication Administered: ZOFRAN [IVP] (ONDANSETRON HCL), Dose: 4 mg IVP over 2 minute(s), Site: #1 left AC. Medication Ordered: Zofran IV 4 mg (NOW). Start 18:14 07/20/2016 Mely Weber R.N., Stop 19:15 07/20/2016 Mely Weber R.N. Medication Administered: IV NS (SALINE), Dose: IV Fluids over 30 minute(s), Rate: 1000 mL/hr, Dispensed: 1000 mL bag, Site: #1 left AC. Medication Ordered: IV NS : initial bolus none -, then 1000 mL/hr for X1 (NOW). Given 19:13 07/20/2016 Mely Weber R.N. Medication Administered: MORPHINE [IVP], Dose: 4 mg IVP over 2 minute(s), Site: #1 left AC. Medication Ordered: Morphine IV 4 mg (HIGH ALERT MEDICATION, NOW). Given 21:40 07/20/2016 Mely Weber R.N. Medication Administered: MORPHINE [IVP], Dose: 4 mg IVP over 2 minute(s), Site: #1 left AC. Medication Ordered: Morphine IV 4 mg (HIGH ALERT MEDICATION, NOW). Given 22:08 07/20/2016 Mely Weber R.N. Medication Administered: HYDRALAZINE [IVP], Dose: 20 mg IVP over 2 minute(s), Site: #2 right AC. Medication Ordered: Hydralazine IV 20 mg (HIGH ALERT MEDICATION, NOW).
== END ==
LOC: ED SRH 16:49
DX: R10.31 Right lower quadrant pain (principal); I10 Essential (primary) hypertension; F17.200 Nicotine dependence, unspecified, uncomplicated
CPT/HCPCS: 90004; 90100; 90148; 90469; 93070; 95059